=== PATIENT | male | born 1955 ===

== ENCOUNTER → 2023-09-08 06:30 | Day surgery (SDC) | payer MEDICARE, SELFPAY | LOC: GI 06:30 | PROVIDERS: ATTENDING PHYSICIAN Internal Medicine Gastroenterology | DX: Z12.11 Encounter for screening for malignant neoplasm of colon (principal); Z86.010 Personal history of colon polyps; K62.89 Other specified diseases of anus and rectum; K57.30 Diverticulosis of large intestine without perforation or abscess without bleeding; D12.3 Benign neoplasm of transverse colon | CPT/HCPCS: 45385; 88305 ==

== ENCOUNTER → 2024-01-05 08:04 | Outpatient (REF) | payer MEDICARE, SELFPAY | LOC: HWRCS 08:04 | PROVIDERS: FAMILY PHYSICIAN Family Medicine | DX: Q21.12 Patent foramen ovale (principal); R91.8 Other nonspecific abnormal finding of lung field | CPT/HCPCS: 71250; 93306 ==

== ENCOUNTER → 2024-06-09 10:16 | Outpatient (REF) | payer MEDICARE, SELFPAY | LOC: DHSLP 10:16 | PROVIDERS: ATTENDING PHYSICIAN Internal Medicine Critical Care Medicine; FAMILY PHYSICIAN Family Medicine | DX: G47.33 Obstructive sleep apnea (adult) (pediatric) (principal) | CPT/HCPCS: 95800 ==